=== PATIENT | female | born 1945 | race Caucasian/White ===

== ENCOUNTER 2016-12-13 10:30 | Emergency (ER) | payer OTHER ==
[~2016-12-13] VITALS: Ht 154.9 cm; Wt 59.1 kg
[~2016-12-13 10:30] MED LIST: ESTR1 PO; METH750T2 PO; PANT20 PO; PROT40TA PO; SYNT25TA; ZOLP5TAB3 PO
[2016-12-13 10:34] VITALS: BP 118/64; PULSE 74; RESP 17; TEMP 97.8; O2SAT 97
[2016-12-13] MEDS ORDERED: SODIUM CHLOR 0.9% 1000 ML INJ 1,000 ML IV SCH (11:06)
--- NOTE | 2016-12-13 11:13 | PD ---
HPI Chief Complaint: Abdominal Pain Time Seen by Provider: 10:46 Travel History International Travel<30 days: No Contact w/Intl Traveler<30days: No Traveled to known affect area: No History of Present Illness HPI Patient is a 70 year old female who comes in complaining of left sided abdominal pain that radiates into her back. She says she has had the pain for the past week. She says she has felt like she had a fever, but she has not taken her temperature. She says she has had multiple episodes of diarrhea and occasionally felt as if she would pass out while on the toilet. She denies any vomiting. She says she has not been eating much, but is drinking plenty of fluids. She has history of colon cancer and is followed closely by Dr. Lane with repeat scopes. She went to see her PMD on Friday who started her on Paxil because he believes she is having anxiety issues. She says she has not been feeling better. PFSH Past Medical History Cancer: Yes (history of colon cancer) Cardiovascular Problems: No Diabetes: No Gastrointestinal Disorders: Yes GERD: Yes Genitourinary: No Hepatitis: No Hiatal Hernia: Yes Hypertension: No Immune Disorder: No Musculoskeletal: No Neurologic: No Psychiatric: Yes (anxiety) Reproductive: No Respiratory: No Immunizations Current: Yes Thyroid Disease: Yes ?: Not Past Surgical History Abdominal Surgery: Yes (colon , gallbladder, hysterectomy) AICD: No Cardiac Surgery: No Cholecystectomy: Yes Ear Surgery: No Endocrine Surgery: No Eye Surgery: Yes (cataracts removed) Genitourinary Surgery: No Gynecologic Surgery: Yes Hysterectomy: Yes (FULL ) Joint Replacement: No Neurologic Surgery: No Oral Surgery: No Pacemaker: No Thoracic Surgery: No Other Surgery: Yes (bilat breast biopsies) Social History Alcohol Use: Yes (occ) Tobacco Use: No Substance Use: No Allergies-Medications (Allergen,Severity, Reaction): Coded Allergies: Codeine (Verified Allergy, Severe, hives, 12/13/16) Penicillin (Verified Allergy, Severe, HIVES, 12/13/16) Sulfa (Verified Allergy, Severe, HIVES, 12/13/16) Lortab (Verified Allergy, Intermediate, 12/13/16) Morphine (Verified Allergy, Intermediate, HIVES, 12/13/16) Percocet (Verified Allergy, Intermediate, 12/13/16) Reported Meds & Prescriptions Reported Meds & Active Scripts Active Reported Estrace (Estradiol) 1 Mg Tab 1 Mg PO DAILY Paroxetine (Paroxetine HCl) 10 Mg Tab 10 Mg PO DAILY Atorvastatin (Atorvastatin Calcium) 20 Mg Tab 20 Mg PO HS Omeprazole 40 Mg Cap 40 Mg PO DAILY Levothyroxine (Levothyroxine Sodium) 88 Mcg Tab 88 Mcg PO DAILY Review of Systems Except as stated in HPI: all other systems reviewed are Neg General / Constitutional: Positive: Fever, No: Chills HENT: Positive: Lightheadedness, No: Headaches Cardiovascular: No: Chest Pain or Discomfort Respiratory: No: Cough, Shortness of Breath Gastrointestinal: Positive: Nausea, Diarrhea, Abdominal Pain, No: Vomiting Genitourinary: No: Dysuria Musculoskeletal: No: Myalgias Skin: No Rash, No Change in Pigmentation Neurologic: No: Weakness, Dizziness Physical Exam Narrative GENERAL: Awake and alert, in no acute distress. SKIN: Focused skin assessment warm/dry. HEAD: Atraumatic. Normocephalic. EYES: Pupils equal and round. No scleral icterus. ENT: Mucous membranes pink and moist. NECK: Trachea midline. No JVD. CARDIOVASCULAR: Regular rate and rhythm. No murmur appreciated. RESPIRATORY: No accessory muscle use. Clear to auscultation. Breath sounds equal bilaterally. GASTROINTESTINAL: Abdomen soft, nondistended. Minimal tenderness to the LLQ. No rebound or guarding. MUSCULOSKELETAL: No obvious deformities. No clubbing. No cyanosis. No edema. NEUROLOGICAL: Awake and alert. No obvious cranial nerve deficits. Motor grossly within normal limits. Normal speech. PSYCHIATRIC: Appropriate mood and affect; insight and judgment normal. Data Data Last Documented VS Vital Signs Date Time Temp Pulse Resp B/P Pulse Ox O2 Delivery O2 Flow Rate FiO2 12/13/16 10:34 97.8 74 17 118/64 97 Room Air Orders Complete Blood Count With Diff (12/13/16 11:06) Comprehensive Metabolic Panel (12/13/16 11:06) Prothrombin Time / Inr (Pt) (12/13/16 11:06) Act Partial Throm Time (Ptt) (12/13/16 11:06) Urinalysis - C+S If Indicated (12/13/16 11:06) Ua Includes Microscopic (12/13/16 11:06) Ct Abd/Pel W Iv Contrast(Rout) (12/13/16 11:06) Iv Access Insert/Monitor (12/13/16 11:06) Ecg Monitoring (12/13/16 11:06) Oximetry (12/13/16 11:06) Ondansetron Inj (Zofran Inj) (12/13/16 11:15) Sodium Chlor 0.9% 1000 Ml Inj (Ns 1000 M (12/13/16 11:06) Sodium Chloride 0.9% Flush (Ns Flush) (12/13/16 11:15) Electrocardiogram (12/13/16 11:06) Famotidine Inj (Pepcid Inj) (12/13/16 11:15) Dicyclomine Inj (Bentyl Inj) (12/13/16 11:15) Iohexol 350 Inj (Omnipaque 350 Inj) (12/13/16 13:47) Labs Laboratory Tests Test 12/13/16 11:35 White Blood Count 5.7 TH/MM3 Red Blood Count 4.53 MIL/MM3 Hemoglobin 14.4 GM/DL Hematocrit 43.1 % Mean Corpuscular Volume 95.0 FL Mean Corpuscular Hemoglobin 31.7 PG Mean Corpuscular Hemoglobin 33.4 % Concent Red Cell Distribution Width 14.1 % Platelet Count 194 TH/MM3 Mean Platelet Volume 8.7 FL Neutrophils (%) (Auto) 71.9 % Lymphocytes (%) (Auto) 18.9 % Monocytes (%) (Auto) 7.7 % Eosinophils (%) (Auto) 0.9 % Basophils (%) (Auto) 0.6 % Neutrophils # (Auto) 4.1 TH/MM3 Lymphocytes # (Auto) 1.1 TH/MM3 Monocytes # (Auto) 0.4 TH/MM3 Eosinophils # (Auto) 0.1 TH/MM3 Basophils # (Auto) 0.0 TH/MM3 CBC Comment DIFF FINAL Differential Comment Prothrombin Time 10.3 SEC Prothromb Time International 0.9 RATIO Ratio Activated Partial 26.8 SEC Thromboplast Time Urine Color LIGHT-YELLOW Urine Turbidity CLEAR Urine pH 7.5 Urine Specific [place] 1.004 Urine Protein NEG mg/dL Urine Glucose (UA) NEG mg/dL Urine Ketones NEG mg/dL Urine Occult Blood NEG Urine Nitrite NEG Urine Bilirubin NEG Urine Urobilinogen LESS THAN 2.0 MG/DL Urine Leukocyte Esterase NEG Urine RBC LESS THAN 1 /hpf Urine WBC LESS THAN 1 /hpf Urine Squamous Epithelial 2 /hpf Cells Urine Mucus FEW /lpf Microscopic Urinalysis Comment CULT NOT INDICATED Sodium Level 140 MEQ/L Potassium Level 4.1 MEQ/L Chloride Level 101 MEQ/L Carbon Dioxide Level 33.3 MEQ/L Anion Gap 6 MEQ/L Blood Urea Nitrogen 9 MG/DL Creatinine 0.73 MG/DL Estimat Glomerular Filtration 79 ML/MIN Rate Random Glucose 77 MG/DL Calcium Level 9.5 MG/DL Total Bilirubin 0.3 MG/DL Aspartate Amino Transf 24 U/L (AST/SGOT) Alanine Aminotransferase 43 U/L (ALT/SGPT) Alkaline Phosphatase 96 U/L Total Protein 7.3 GM/DL Albumin 3.8 GM/DL [facility] Medical Decision Making Medical Screen Exam Complete: Yes Emergency Medical Condition: Yes Medical Record Reviewed: Yes Differential Diagnosis Colitis vs diverticulitis vs SBO Narrative Course Patient is a 70-year-old female comes in complaining of abdominal pain with diarrhea. Exam shows minimal left lower quadrant tenderness. IV established, labs sent. Labs show no acute abnormalities. CT abdomen and pelvis performed shows no acute abnormalities. Patient given IV fluids and Bentyl. She reports feeling better. She is advised follow-up with gastroenterology. Last 24 hours Impressions Abdomen/Pelvis CT 12/13/16 1106 Signed Impressions: Service Date/Time: Tuesday, December 13, 2016 13:28 - CONCLUSION: 1. No definite abnormality to explain the patient's left-sided abdominal pain identified. 2. There are postsurgical changes. The examination is otherwise within normal limits for age. Peter Mosley MD She is advised to drink plenty of fluids. Advised to return to the emergency department as needed for any worsening symptoms. Diagnosis Primary Impression: Abdominal pain Qualified Code: R10.32 - Left lower quadrant pain Referrals: Avril Freeman MD call for appointment Patient Instructions: Abdominal Pain (ED), General Instructions Additional Instructions: Follow-up with gastroenterology. Make sure he drink plenty of fluids. Return to the emergency department as needed for any worsening symptoms. Disposition: 01 DISCHARGE HOME Condition: Stable Buffy Marie MD Dec 13, 2016 11:13
[2016-12-13] MEDS ORDERED: DICYCLOMINE HCL 20 MG/2 ML VIAL IM ONE (11:15)
[2016-12-13] MEDS ORDERED: FAMOTIDINE 20 MG/2 ML VIAL IV PUSH ONE (11:15)
[2016-12-13] MEDS ORDERED: ONDANSETRON HCL 4 MG/2 ML VIAL IVP ONE (11:15)
[2016-12-13] MEDS ORDERED: SODIUM CHLORIDE 0.9% FLUSH 10 ML FLUSH IV FLUSH PRN (11:15)
[2016-12-13] MEDS ORDERED: ATOR20TA15 PO (11:47)
[2016-12-13] MEDS ORDERED: OMEP40CA2 PO (11:47)
[2016-12-13] MEDS ORDERED: PARO10TA2 PO (11:47)
[2016-12-13] MEDS ORDERED: ESTR1 PO (11:47)
[2016-12-13] MEDS ORDERED: LEVO88TA2 PO (11:47)
[2016-12-13 11:53] LABS: AUTOMATED NEUTROPHIL # 4.1 TH/MM3 (1.8-7.7); BASOPHIL % 0.6 % (0.0-2.0); EOSINOPHIL # 0.1 TH/MM3 (0-0.4); EOSINOPHIL % 0.9 % (0.0-4.0); HEMATOCRIT 43.1 % (35.0-46.0); HEMO FLAGS DIFF FINAL; LYMPH % 18.9 % (9.0-44.0); LYMPHOCYTE # 1.1 TH/MM3 (1.0-4.8); MEAN CORPUSCULAR HEMOGLOBIN 31.7 PG (27.0-34.0); MEAN CORPUSCULAR HGB CONC 33.4 % (32.0-36.0); MONO % 7.7 % (0.0-8.0); NEUT % 71.9 % (16.0-70.0); PLATELET COUNT 194 TH/MM3 (150-450); RED BLOOD COUNT 4.53 MIL/MM3 (4.00-5.30); RED CELL DISTRIBUTION WIDTH 14.1 % (11.6-17.2); WHITE BLOOD COUNT 5.7 TH/MM3 (4.0-11.0)
[2016-12-13 11:58] LABS: BLOOD, URINE NEG (NEG); COMMENT (UR) CULT NOT INDICATED; CULTURE IF INDICATED CULT NOT INDICATED; GLUCOSE,URINE NEG (NEG); KETONE, URINE NEG (NEG); MUCUS URINE FEW /lpf (OCC); NITRITE,URINE NEG (NEG); PH, URINE 7.5 (5.0-8.5); SQUAMOUS EPITHELIAL CELL URINE 2 /hpf (0-5); URINE COLOR LIGHT-YELLOW (YELLW/STRAW)
[2016-12-13 11:59] LABS: APTT (PATIENT) 26.8 SEC (24.3-30.1); INTERNATIONAL NORMALIZED RATIO 0.9 RATIO; PROTHROMBIN TIME - PATIENT 10.3 SEC (9.8-11.6)
[2016-12-13 12:24] LABS: ANION GAP 6 MEQ/L (5-15); AST (GOT) 24 U/L (15-37); BICARBONATE 33.3 MEQ/L (21.0-32.0); BLOOD UREA NITROGEN 9 MG/DL (7-18); CHLORIDE 101 MEQ/L (98-107); GLOMERULAR FILTRATION RATE 79 ML/MIN (>89); POTASSIUM 4.1 MEQ/L (3.5-5.1); SODIUM (NA) 140 MEQ/L (136-145)
[2016-12-13 12:29] LABS: ALKALINE PHOSPHATASE 96 U/L (45-117); ALT (GPT) 43 U/L (10-53); TOTAL BILIRUBIN ADULT 0.3 MG/DL (0.2-1.0)
[2016-12-13] MEDS ORDERED: IOHEXOL 350 MG/ML 10 ML VIAL (for RAD DIAG) IV ONE (13:47)
--- NOTE | 2016-12-13 14:05 | RADRPT ---
EXAM DATE/TIME: 12/13/2016 13:28 [facility] COMPARISON: CT ABDOMEN & PELVIS W CONTRAST, December 20, 2015, 11:31. INDICATIONS : Diffuse abdomen pain on left side. IV CONTRAST: 96 cc Omnipaque 350 (iohexol) IV ORAL CONTRAST: No oral contrast ingested. RADIATION DOSE: 9.96 CTDIvol (mGy) MEDICAL HISTORY : Irritiable bowel syndrome. Carcinoma, colon. SURGICAL HISTORY : Cholecystectomy. Hysterectomy.Hiatal hernia, Colectomy. ENCOUNTER: Initial ACUITY: 1 week PAIN SCALE: 6/10 LOCATION: Left side of abdomen TECHNIQUE: Volumetric scanning of the abdomen and pelvis was performed. Using automated exposure control and ad justment of the mA and/or kV according to patient size, radiation dose was kept as low as reasonably achievable to obtain optimal diagnostic quality images. DICOM format image data is available electro nically for review and comparison. FINDINGS: The limited portion of the lung base visualized is clear. The appearance of the liver, spleen, pancreas, adrenal glands and kidneys is within normal limits. Th ere multiple surgical clips seen within the gallbladder fossa. The abdominal aorta is normal caliber. There is no retroperitoneal lymphadenopathy. The visualized loops of small and large bowel in the upper abdomen are unremarkable. There is no free fluid within the pelvis. No iliac or inguinal adenopathy is present. The patient is post hysterectomy. There are sutures within the distal colon. The visualized bony structures demonstrate degenerative changes but are otherwise intact. CONCLUSION: 1. No definite abnormality to explain the patient's left-sided abdominal pain identified. 2. There are postsurgical changes. The examination is otherwise within normal limits for age. Peter Mosley MD on December 13, 2016 at 13:59 Board Certified Radiologist. This report was verified electronically.
--- NOTE | 2016-12-14 10:38 | EKG ---
Date Performed: 12/13/2016 Time Performed: 11:31:11 PTAGE: 70 years EKG: SINUS BRADYCARDIA BORDERLINE ECG PREVIOUS TRACING : 12/20/2015 10.38 DOCTOR: Lebron Eugene Interpretating Date/Time 12/14/2016 10:36:02
== END 2016-12-13 15:10 | disposition home or self-care (01) ==
LOC: NEPD 10:30
DX: R10.32 Left lower quadrant pain (principal); R19.7 Diarrhea, unspecified; F41.9 Anxiety disorder, unspecified; Z85.038 Personal history of other malignant neoplasm of large intestine; Z79.899 Other long term (current) drug therapy
CPT/HCPCS: 74177; 80053; 81001; 85025; 85610; 85730; 93005; 96361; 96372; 96374; 96375; 99285; J0500; J2405; J7030; Q9967

== ENCOUNTER 2017-09-02 22:38 | Emergency (ER) | payer MEDICARE, OTHER ==
[~2017-09-02] VITALS: Ht 154.9 cm; Wt 60.0 kg
[~2017-09-02 22:38] MED LIST changes: +ATOR20TA15 PO; +LEVO88TA2 PO; -METH750T2 PO; +OMEP40CA2 PO; -PANT20 PO; +PARO10TA2 PO; -PROT40TA PO; -SYNT25TA; -ZOLP5TAB3 PO
[2017-09-02 23:12] VITALS: BP 130/69; PULSE 64; RESP 18; TEMP 97.6; O2SAT 96
[2017-09-03 00:32] VITALS: BP 132/98; PULSE 58; RESP 16; O2SAT 98
[2017-09-03] MEDS ORDERED: SODIUM CHLORID 0.9% 500 ML INJ 500 ML IV ONE ×2 (00:45→02:15)
[2017-09-03] MEDS ORDERED: PROCHLORPERAZINE INJ 10 MG/2 ML VIAL IV PUSH ONE (00:45)
[2017-09-03 00:56] VITALS: RESP 18; O2SAT 98
--- NOTE | 2017-09-03 01:03 | PD ---
HPI Chief Complaint: GI Complaint Time Seen by Provider: 00:24 Travel History International Travel<30 days: No Contact w/Intl Traveler<30days: No Traveled to known affect area: No History of Present Illness HPI The patient is a 71 year old female who presents to the [facility] emergency department with a history of undergoing a CT scan of the abdomen and pelvis with barium contrast earlier today which was completed at 2:45 PM. The patient reports that she had been n.p.o. for this imaging. She reports that when she got home she began to have a headache on the left side of her head. She then developed nausea and vomiting. She reports that she is vomited 4. She reports that the emesis last consisted of bile. The patient reports that she underwent the imaging because she has had abdominal pain in the left upper quadrant of the right abdomen that radiates up from the left flank into the left shoulder. She reports that this is an ongoing problem that is been evaluated by her internal medicine doctor, primary care physician and her colorectal surgeon, Dr. Lane. The patient's history is significant for having colon cancer status post partial colectomy in 2001 followed by radiation and chemotherapy. The patient on review of systems reports that she has had a cough for the last 2 weeks. She denies having any nasal discharge, however she does report having post nasal drip and sinus pressure. She reports having chronic sinus issues. She reports that her cough has been productive of a clear sputum. On review of systems otherwise, she denies having any recent fevers, neck pain, chest pain, shortness of breath, diarrhea, urinary symptoms, or neurologic symptoms. [facility] Past Medical History Narrative Medical The patient's past medical history is significant for having colon cancer, history of acid reflux, history of hiatal hernia, history of anxiety disorder, hyperlipidemia, hypothyroid disorder Anxiety: Yes Cancer: Yes (history of colon cancer) Cardiovascular Problems: No Chemotherapy: Yes Diabetes: No Diminished Hearing: No Gastrointestinal Disorders: Yes GERD: Yes Genitourinary: No Hepatitis: No Hiatal Hernia: Yes Hypertension: No Immune Disorder: No Medical other: No Musculoskeletal: No Neurologic: No Psychiatric: Yes (anxiety) Reproductive: No Respiratory: No Immunizations Current: Yes Radiation Therapy: Yes Thyroid Disease: Yes Tetanus Vaccination: Unknown Influenza Vaccination: Yes ?: Not : 3 Para: 3 Miscarriage: 0 : 0 Past Surgical History Narrative Surgical The patient's past surgical history is significant for partial colectomy, cholecystectomy, hysterectomy, cataract surgery Abdominal Surgery: Yes (colon resection and ca mass removal ) AICD: No Cardiac Surgery: No Cholecystectomy: Yes Ear Surgery: No Endocrine Surgery: No Eye Surgery: Yes (cataracts removed) Genitourinary Surgery: No Gynecologic Surgery: Yes Hysterectomy: Yes Joint Replacement: No Neurologic Surgery: No Oral Surgery: No Pacemaker: No Thoracic Surgery: No Other Surgery: Yes (bilat breast biopsies) Social History Alcohol Use: Yes (occ) Tobacco Use: No Substance Use: No Allergies-Medications (Allergen,Severity, Reaction): Coded Allergies: Sulfa (Sulfonamide Antibiotics) (Unverified Allergy, Severe, HIVES, 09/02/17 ) codeine (Unverified Allergy, Severe, hives, 09/02/17) penicillin G (Unverified Allergy, Severe, HIVES, 09/02/17) hydrocodone (Unverified Allergy, Intermediate, 09/02/17) morphine (Unverified Allergy, Intermediate, HIVES, 09/02/17) Reported Meds & Prescriptions Reported Meds & Active Scripts Active Zofran Odt (Ondansetron Odt) 4 Mg Tab 4 Mg SL Q8HR PRN Zofran Odt (Ondansetron Odt) 4 Mg Tab 4 Mg SL Q6HR PRN Reported Estrace (Estradiol) 1 Mg Tab 1 Mg PO DAILY Paroxetine (Paroxetine HCl) 10 Mg Tab 10 Mg PO DAILY Atorvastatin (Atorvastatin Calcium) 20 Mg Tab 20 Mg PO HS Omeprazole 40 Mg Cap 40 Mg PO DAILY Levothyroxine (Levothyroxine Sodium) 88 Mcg Tab 88 Mcg PO DAILY Review of Systems Except as stated in HPI: all other systems reviewed are Neg General / Constitutional: No: Fever Eyes: No: Visual changes HENT: Positive: Headaches, Congestion, No: Rhinorrhea, Neck Stiffness, Neck Pain Cardiovascular: No: Chest Pain or Discomfort Respiratory: Positive: Cough, No: Shortness of Breath Gastrointestinal: Positive: Nausea, Vomiting, Abdominal Pain, Indigestion, No: Diarrhea, Changes in Bowel Habits, Loss of Appetite Genitourinary: No: Dysuria Musculoskeletal: No: Pain Skin: No Rash Neurologic: Positive: Headache, No: Weakness, Focal Abnormalities, Change in Mentation, Slurred Speech, Sensory Disturbance Psychiatric: No: Depression Endocrine: No: Polydipsia Hematologic/Lymphatic: No: Easy Bruising Physical Exam Narrative General: The patient is a well-developed well-nourished female in no acute distress. Head and Neck exam: Head is normocephalic atraumatic. Eyes: EOMI, pupils are equal round and reactive to light. Nose: Midline septum with pink mucous membranes Mouth: Dentition unremarkable. Moist mucus membranes. Posterior oropharynx is not erythematous. No tonsillar hypertrophy. Uvula midline. Airway patent. Neck: No palpable lymphadenopathy. No nuchal rigidity. No thyromegaly. Cardiovascular: Regular rate and rhythm without murmurs, gallops, or rubs. Lungs: Clear to auscultation bilaterally. No wheezes, rhonchi, or rales. Abdomen: Soft, without tenderness to palpation in all 4 quadrants of the abdomen. No guarding, rebound, or rigidity. Normal bowel sounds are audible. No tenderness on palpation of McBurney's point. Negative Parish sign Extremities: No clubbing, cyanosis, or edema. 2+ pulses in all 4 extremities. No calf tenderness on palpation. Back: No spinous process tenderness to palpation. The patient reports having left- sided CVA tenderness on palpation. Neurologic Exam: Grossly nonfocal. Skin Exam: No rash noted. Intact skin that is warm and dry. Data Data Last Documented VS Vital Signs Date Time Temp Pulse Resp B/P (MAP) Pulse Ox O2 Delivery O2 Flow Rate FiO2 09/03/17 03:15 09/03/17 00:56 18 98 Room Air 09/03/17 00:32 58 09/02/17 23:12 97.6 Orders Orders Complete Blood Count With Diff (09/03/17 00:40) Comprehensive Metabolic Panel (09/03/17 00:40) Creatine Kinase (Cpk) (09/03/17 00:40) Ckmb (Isoenzyme) Profile (09/03/17 00:40) Troponin I (09/03/17 00:40) Prothrombin Time / Inr (Pt) (09/03/17 00:40) Act Partial Throm Time (Ptt) (09/03/17 00:40) Lipase (09/03/17 00:40) Urinalysis - C+S If Indicated (09/03/17 00:40) Westergren Sedimentation Rate (09/03/17 00:40) Magnesium (Mg) (09/03/17 00:40) Ct Brain W/O Iv Contrast(Rout) (09/03/17 00:40) Iv Access Insert/Monitor (09/03/17 00:40) Ecg Monitoring (09/03/17 00:40) Oximetry (09/03/17 00:40) Sodium Chlorid 0.9% 500 Ml Inj (Ns 500 M (09/03/17 00:45) Prochlorperazine Inj (Compazine Inj) (09/03/17 00:45) CKMB (09/03/17 00:53) CKMB% (09/03/17 00:53) Sodium Chlorid 0.9% 500 Ml Inj (Ns 500 M (09/03/17 02:15) Oral Rehydration (09/03/17 02:33) Labs Laboratory Tests Test 09/03/17 00:53 09/03/17 01:40 White Blood Count 9.2 TH/MM3 Red Blood Count 4.37 MIL/MM3 Hemoglobin 14.3 GM/DL Hematocrit 41.9 % Mean Corpuscular Volume 95.9 FL Mean Corpuscular Hemoglobin 32.7 PG Mean Corpuscular Hemoglobin Concent 34.1 % Red Cell Distribution Width 14.2 % Platelet Count 213 TH/MM3 Mean Platelet Volume 8.7 FL Neutrophils (%) (Auto) 87.2 % Lymphocytes (%) (Auto) 8.2 % Monocytes (%) (Auto) 4.2 % Eosinophils (%) (Auto) 0.2 % Basophils (%) (Auto) 0.2 % Neutrophils # (Auto) 8.0 TH/MM3 Lymphocytes # (Auto) 0.8 TH/MM3 Monocytes # (Auto) 0.4 TH/MM3 Eosinophils # (Auto) 0.0 TH/MM3 Basophils # (Auto) 0.0 TH/MM3 CBC Comment DIFF FINAL Differential Comment Erythrocyte Sedimentation Rate 9 mm/hr Prothrombin Time 10.0 SEC Prothromb Time International Ratio 1.0 RATIO Activated Partial Thromboplast Time 27.9 SEC Blood Urea Nitrogen 7 MG/DL Creatinine 0.63 MG/DL Random Glucose 100 MG/DL Total Protein 7.9 GM/DL Albumin 4.0 GM/DL Calcium Level 9.2 MG/DL Magnesium Level 1.8 MG/DL Alkaline Phosphatase 126 U/L Aspartate Amino Transf (AST/SGOT) 29 U/L Alanine Aminotransferase (ALT/SGPT) 54 U/L Total Bilirubin 0.5 MG/DL Sodium Level 136 MEQ/L Potassium Level 3.9 MEQ/L Chloride Level 98 MEQ/L Carbon Dioxide Level 30.4 MEQ/L Anion Gap 8 MEQ/L Estimat Glomerular Filtration Rate 93 ML/MIN Total Creatine Kinase 128 U/L Creatine Kinase MB 1.1 NG/ML Troponin I LESS THAN 0.02 NG/ML Lipase 312 U/L Urine Color LIGHT-YELLOW Urine Turbidity CLEAR Urine pH 6.5 Urine Specific [place] 1.006 Urine Protein NEG mg/dL Urine Glucose (UA) NEG mg/dL Urine Ketones 10 mg/dL Urine Occult Blood NEG Urine Nitrite NEG Urine Bilirubin NEG Urine Urobilinogen LESS THAN 2.0 MG/DL Urine Leukocyte Esterase NEG Urine Squamous Epithelial Cells 5 /hpf Urine Bacteria OCC /hpf Microscopic Urinalysis Comment CULT NOT INDICATED MDM Medical Decision Making Medical Screen Exam Complete: Yes Emergency Medical Condition: Yes Medical Record Reviewed: Yes Interpretation(s) Last Impressions Head CT 09/03/170 Signed Impressions: Service Date/Time: Friday, September 03, 2017 01:28 - CONCLUSION: Normal examination. George Roman MD Differential Diagnosis Tension headache, versus headache related to dehydration, versus migraine headache, versus viral syndrome, versus headache related to side effect from barium Narrative Course During the course of the patient's emergency department visit, the patient's history, examination, and differential diagnosis were reviewed with the patient. The patient was placed on a quality assurance monitor chassis with oximetry and frequent blood pressure monitoring. The patient had IV access obtained and blood work sent for analysis. The patient was initially provided normal saline of 500 mL bolus 1, Compazine 5 mg IV. The patient's laboratory studies were reviewed and remarkable for a CBC that shows a neutrophil count of 87.2, lymphocytes 8.2, sedimentation rate is 9, CMP is remarkable for an ALT of 54, alk phos 126 in a patient with a reported history of mildly elevated LFTs in the past, cardiac enzymes within normal limits, lipase 312, PT PTT within normal limits. Urinalysis shows 10 ketones otherwise unremarkable. Radiology studies were reviewed and remarkable for a CT scan of the brain that showed no acute abnormality. CT scan done earlier today of the abdomen and pelvis revealed no acute abnormality, evidence of prior cholecystectomy. The patient was reexamined and reportedly feeling improved. The patient is resting comfortably and feels better, is alert and in no distress. The patient's results and examination findings were discussed with the patient. The repeat examination is unremarkable and benign. The history, exam, diagnostic testing, and current condition do not suggest any significant pathology to warrant further testing, continued ED treatment, admission, or surgical evaluation at this point. The vital signs have been stable. The patient does not have uncontrollable pain, intractable vomiting, or other significant symptoms. The patient's condition is stable and appropriate for discharge. The patient will pursue further outpatient evaluation with a primary care physician or other designated or consulting physician as indicated in the discharge instructions. The patient expressed understanding and was agreeable with this plan. Diagnosis Primary Impression: Vomiting Qualified Codes: R11.2 - Nausea with vomiting, unspecified Additional Impression: Headache Qualified Codes: R51 - Headache Referrals: Primary Care Physician 2 days Patient Instructions: Acute Headache (ED), Acute Nausea and Vomiting (ED), General Instructions Med/Other Pt SpecificInfo: Prescription(s) given Scripts Ondansetron Odt (Zofran Odt) 4 Mg Tab 4 MG SL Q8HR Y for Nausea/Vomiting, #7 TAB 0 Refills Prov: Chanel Cat MD 09/03/17 Ondansetron Odt (Zofran Odt) 4 Mg Tab 4 MG SL Q6HR Y for Nausea/Vomiting, #7 TAB 0 Refills Prov: Chanel Cat MD 09/03/17 Disposition: 01 DISCHARGE HOME Condition: Stable Chanel Cat MD Sep 03, 2017 01:03
[2017-09-03 01:11] LABS: BASOPHIL % 0.2 % (0.0-2.0); EOSINOPHIL % 0.2 % (0.0-4.0); HEMATOCRIT 41.9 % (35.0-46.0); HEMOGLOBIN 14.3 GM/DL (11.6-15.3); LYMPH % 8.2 % (9.0-44.0); LYMPHOCYTE # 0.8 TH/MM3 (1.0-4.8); MEAN CELL VOLUME 95.9 FL (80.0-100.0); MEAN CORPUSCULAR HEMOGLOBIN 32.7 PG (27.0-34.0); MEAN CORPUSCULAR HGB CONC 34.1 % (32.0-36.0); MEAN PLATELET VOLUME 8.7 FL (7.0-11.0); MONO % 4.2 % (0.0-8.0); MONOCYTE # 0.4 TH/MM3 (0-0.9); NEUT % 87.2 % (16.0-70.0); PLATELET COUNT 213 TH/MM3 (150-450); RED BLOOD COUNT 4.37 MIL/MM3 (4.00-5.30); RED CELL DISTRIBUTION WIDTH 14.2 % (11.6-17.2); WHITE BLOOD COUNT 9.2 TH/MM3 (4.0-11.0)
--- NOTE | 2017-09-03 01:40 | RADRPT ---
EXAM DATE/TIME: 09/03/2017 01:28 [facility] COMPARISON: No previous studies available for comparison. INDICATIONS : Cephalgia. RADIATION DOSE: 56.35 CTDIvol (mGy) MEDICAL HISTORY : Carcinoma, colon. SURGICAL HISTORY : Cholecystectomy. ENCOUNTER: Initial ACUITY: 1 day PAIN SCALE: 5/10 LOCATION: cranial TECHNIQUE: Multiple contiguous axial images were obtained of the head. Using automated exposure control and adj ustment of the mA and/or kV according to patient size, radiation dose was kept as low as reasonably a chievable to obtain optimal diagnostic quality images. DICOM format image data is available electro nically for review and comparison. FINDINGS: CEREBRUM: The ventricles are normal for age. No evidence of midline shift, mass lesion, hemorrhage or acute in farction. No extra-axial fluid collections are seen. POSTERIOR FOSSA: The cerebellum and brainstem are intact. The 4th ventricle is midline. The cerebellopontine angle i s unremarkable. EXTRACRANIAL: The visualized portion of the orbits is intact. SKULL: The calvaria is intact. No evidence of skull fracture. CONCLUSION: Normal examination. George Roman MD on September 03, 2017 at 1:37 Board Certified Radiologist. This report was verified electronically.
[2017-09-03 01:46] LABS: AST (GOT) 29 U/L (15-37); BICARBONATE 30.4 MEQ/L (21.0-32.0); BLOOD UREA NITROGEN 7 MG/DL (7-18); CALCIUM 9.2 MG/DL (8.5-10.1); CHLORIDE 98 MEQ/L (98-107); CREATININE 0.63 MG/DL (0.50-1.00); GLOMERULAR FILTRATION RATE 93 ML/MIN (>89); GLUCOSE,RANDOM 100 MG/DL (74-106); MAGNESIUM 1.8 MG/DL (1.5-2.5); SODIUM (NA) 136 MEQ/L (136-145)
[2017-09-03 01:51] LABS: ALKALINE PHOSPHATASE 126 U/L (45-117); ALT (GPT) 54 U/L (10-53); TOTAL BILIRUBIN ADULT 0.5 MG/DL (0.2-1.0); TOTAL PROTEIN 7.9 GM/DL (6.4-8.2); TROPONIN I LESS THAN 0.02 NG/ML (0.02-0.05)
[2017-09-03 02:00] LABS: BACTERIA, URINE OCC /hpf; BILIRUBIN, URINE NEG (NEG); BLOOD, URINE NEG (NEG); GLUCOSE,URINE NEG (NEG); KETONE, URINE 10 mg/dL (NEG); NITRITE,URINE NEG (NEG); PH, URINE 6.5 (5.0-8.5); SQUAMOUS EPITHELIAL CELL URINE 5 /hpf (0-5); URINE COLOR LIGHT-YELLOW (YELLW/STRAW); URINE LEUKOCYTE ESTERASE NEG (NEG)
[2017-09-03] MEDS ORDERED: ZOFR4TAB3 SL ×2 (02:34→03:02)
== END 2017-09-03 03:16 | disposition home or self-care (01) ==
LOC: NEPC 22:38
DX: R11.2 Nausea with vomiting, unspecified (principal); R51 Headache; R05 Cough; R10.9 Unspecified abdominal pain; E78.5 Hyperlipidemia, unspecified; E03.9 Hypothyroidism, unspecified; K21.9 Gastro-esophageal reflux disease without esophagitis; Z85.038 Personal history of other malignant neoplasm of large intestine; Z88.5 Allergy status to narcotic agent; Z88.2 Allergy status to sulfonamides; Z88.0 Allergy status to penicillin; Z79.899 Other long term (current) drug therapy
CPT/HCPCS: 70450; 80053; 81001; 82550; 82552; 83690; 83735; 84484; 85025; 85610; 85652; 85730; 96361; 96374; 99284; J0780; J7040